=== PATIENT | male | born 1985 | race African-American/Black ===

== ENCOUNTER 2018-09-22 13:52 | Outpatient (CLI) | payer MEDICAID ==
[2018-09-22 14:15] VITALS: BP 117/69
[2018-09-22] MEDS ORDERED: ALBUTEROL SULF8.5 GM INH (16:43)
--- NOTE | 2018-09-22 23:30 | Consultation ---
DATE OF CONSULTATION: 09/22/2018 CHIEF COMPLAINT: The patient was referred to us for evaluation of constipation, bloating, abdominal pain. HISTORY OF PRESENT ILLNESS: The patient is a 33-year-old male who had a complaint of the above symptoms for many many years. He has been followed by GI. He had already had an endoscopy and colonoscopy in 2009 and followed by another one in 2011. He mainly complains of constipation. At one point, he said he has H. pylori bacterial infection. He was given treatment for that. He takes MiraLAX on and off, sometimes it works and sometimes it does not. No significant weight loss, actually he complained of weight gain. PAST MEDICAL HISTORY: 1. Asthma. 2. Bronchitis. 3. H. pylori gastritis. 4. Chronic constipation. PAST SURGICAL HISTORY: History of testicular torsion at age 14. MEDICATION: Albuterol. FAMILY HISTORY: No family history of GI malignancies. SOCIAL HISTORY: The patient drinks socially he says. Denies any tobacco or drug use. ALLERGIES: No known drug allergies. PHYSICAL EXAMINATION: VITAL SIGNS: Temperature 98, blood pressure 117/69, pulse 78, respirations 20. HEENT: Normocephalic and atraumatic. Sclerae anicteric. NECK: Supple. No evidence of obvious lymphadenopathy. CARDIOVASCULAR: Regular rate and rhythm. Plus S1 and S2. No obvious murmur. LUNGS: Clear to auscultation bilaterally. ABDOMEN: Positive bowel sounds. Soft and nontender. No rebound. No guarding. No peritoneal sign. EXTREMITIES: No cyanosis. No clubbing. No edema. ASSESSMENT: 1. Constipation. 2. Gas and bloating, possible small bowel intestinal bacterial overgrowth. PLAN: The patient was given MiraLax 17 g daily. Given prescriptions was Xifaxan. He wanted to have a breath test, we discussed he is going to have to get authorization for the breath test, he is going to try to that too. The patient come back after treatment. Buddy Connor M.D. DR: Olesya JOB#: [id number] CC:
== END 2018-09-22 15:24 | disposition home or self-care (01) ==
LOC: PAN 13:52
DX: K59.00 Constipation, unspecified (principal); R14.0 Abdominal distension (gaseous); R10.9 Unspecified abdominal pain; Z79.899 Other long term (current) drug therapy
CPT/HCPCS: 99202

== ENCOUNTER 2019-03-12 15:50 | Emergency (ER) | payer MEDICAID ==
[~2019-03-12] VITALS: Ht 172.7 cm; Wt 72.6 kg
[~2019-03-12 15:50] MED LIST: ALBUTEROL SULF8.5 GM INH
[2019-03-12 16:01] VITALS: BP 122/85
--- NOTE | 2019-03-12 16:52 | Emergency Room Report ---
History of Present Illness General Chief Complaint: General Complaint Source: Patient Present Illness HPI The patient presents requesting postexposure prophylaxis for possible HIV exposure. He has a new partner and this partner does not know his HIV status. No protection was used. His sexual encounter was a few hours prior to presenting to the emergency department. The patient denies prior HIV positivity. In triage she stated he had prior hepatitis B vaccination however when queried about this again he is uncertain. The patient suffers from irritable bowel syndrome. No fevers, chills, sore throat, chest pain, palpitations, nausea, vomiting, diarrhea, dysuria, abdominal pain, shortness of breath, joint pain, rashes, visual changes, dizziness, headache. Please see the history and physical performed by the PA. The patient threatened PA and she asked that I evaluate the patient. Allergies: Coded Allergies: No Known Allergies (Unverified , 09/22/18) Patient History Past Medical History: see triage record Social History: Reports: smoking, alcohol use, drug use Social History Narrative From [place] Reviewed Nursing Documentation: PMH: Agreed; PSxH: Agreed Nursing Documentation-PM Past Medical History: No History, Except For Hx Cardiac Problems: No Hx Asthma: No Hx Cancer: No Hx Gastrointestinal Problems: Yes Hx Neurological Problems: No Review of Systems All Other Systems: negative except mentioned in HPI Physical Exam Vital Signs Date Time Temp Pulse Resp B/P (MAP) Pulse Ox O2 Delivery O2 Flow Rate FiO2 03/12/19 15:55 99.1 90 18 119/80 (93) 95 Room Air Sp02 EP Interpretation: reviewed, normal General Appearance: well appearing, no apparent distress, GCS 15 Head: normocephalic, atraumatic Eyes: bilateral eye normal inspection, bilateral eye PERRL ENT: normal pharynx, moist mucus membranes Neck: full range of motion, supple Respiratory: normal inspection, lungs clear, normal breath sounds Cardiovascular #1: regular rate, rhythm Cardiovascular #2: 2+ radial (R) Gastrointestinal: normal inspection, scaphoid Genitourinary: no CVA tenderness Musculoskeletal: gait/station normal Neurologic: alert, grossly normal Psychiatric: anxious - Pressured Skin: normal color, no rash, warm/dry Medical Decision Making Diagnostic Impression: Primary Impression: Possible exposure to STD Additional Impression: Labile personality ER Course Patient presents with possible exposure to HIV. He is uncertain about the status of the source. He is request requesting postexposure prophylaxis. Laboratory is indicated. Patient complained that PA spoke with accent. Initially argumentative about lab work taking time. I told him the dosing would be dependent on his renal function. Lab work unremarkable. I told RN that he needed a dose of Truvada and raltegravir before going. He was upset that I stated this to RN in [facility] (I did not mention patient name or location). He felt this was not respecting his confidentiality. Patient initially refused to take medication under our observation. He wanted to take them with him and take them on his own. When he was advised that this was not permitted by state law he started arguing. He wanted me to show him the actual state law. I told him I did not have access to this. I told him it was his choice either to take the medication or to fill his prescription. He started yelling at me asking for some crackers. I told him I did not know if we had any - He yelled: "Well do you have crackers or not?" and almost hit me in the nose with his index finger. He stated he needed something in his stomach. I got him crackers and sandwich. He claimed I was treating him differently because he is black. Then calmed down. "I am used to a higher level of care - [facility]." Given meds. Patient stable for outpatient observation and treatment. Laboratory Tests Test 03/12/19 16:56 White Blood Count 4.2 K/UL (4.8-10.8) L Red Blood Count 5.59 M/UL (4.70-6.10) Hemoglobin 16.7 G/DL (14.2-18.0) Hematocrit 48.5 % (42.0-52.0) Mean Corpuscular Volume 87 FL (80-99) Mean Corpuscular Hemoglobin 29.9 PG (27.0-31.0) Mean Corpuscular Hemoglobin Concent 34.5 G/DL (32.0-36.0) Red Cell Distribution Width 11.0 % (11.6-14.8) L Platelet Count 243 K/UL (150-450) Mean Platelet Volume 6.3 FL (6.5-10.1) L Neutrophils (%) (Auto) 65.5 % (45.0-75.0) Lymphocytes (%) (Auto) 21.9 % (20.0-45.0) Monocytes (%) (Auto) 10.3 % (1.0-10.0) H Eosinophils (%) (Auto) 0.1 % (0.0-3.0) Basophils (%) (Auto) 2.2 % (0.0-2.0) H Sodium Level 139 MMOL/L (136-145) Potassium Level 3.9 MMOL/L (3.5-5.1) Chloride Level 102 MMOL/L (98-107) Carbon Dioxide Level 36 MMOL/L (21-32) H Anion Gap 1 mmol/L (5-15) L Blood Urea Nitrogen 14 mg/dL (7-18) Creatinine 1.1 MG/DL (0.55-1.30) Estimate Glomerular Filtration Rate > 60 mL/min (>60) Glucose Level 88 MG/DL (74-106) Calcium Level 9.5 MG/DL (8.5-10.1) Total Bilirubin 0.5 MG/DL (0.2-1.0) Aspartate Amino Transferase (AST) 29 U/L (15-37) Alanine Aminotransferase (ALT) 34 U/L (12-78) Alkaline Phosphatase 117 U/L (46-116) H Total Protein 8.1 G/DL (6.4-8.2) Albumin 4.4 G/DL (3.4-5.0) Globulin 3.7 g/dL Albumin/Globulin Ratio 1.2 (1.0-2.7) Amylase Level 82 U/L (25-115) Lipase 140 U/L (73-393) Urine Opiates Screen Negative (NEGATIVE) Urine Barbiturates Screen Negative (NEGATIVE) Phencyclidine (PCP) Screen Negative (NEGATIVE) Urine Amphetamines Screen Negative (NEGATIVE) Urine Benzodiazepines Screen Negative (NEGATIVE) Urine Cocaine Screen Negative (NEGATIVE) Urine Marijuana (THC) Screen Negative (NEGATIVE) Hepatitis B Surface Antibody, Quant Pending Hepatitis C Antibody Pending HIV (1&2) Antibody Rapid Negative (NEGATIVE) Last Vital Signs Date Time Temp Pulse Resp B/P (MAP) Pulse Ox O2 Delivery O2 Flow Rate FiO2 03/12/19 18:24 98.8 86 18 130/85 97 Room Air Status: unchanged Disposition: HOME, SELF-CARE Condition: Stable Scripts Raltegravir (Isentress) 400 Mg Tablet 400 MG ORAL EVERY 12 HOURS, #6 TAB Prov: Curtis Madrigal MD 03/12/19 Emtricitabine/Tenofovir 200-300MG* (TRUVADA 200-300MG*) 1 Each Tablet 1 TAB ORAL DAILY, #3 TAB Prov: Curtis Madrigal MD 03/12/19 Curtis Madrigal MD Mar 12, 2019 16:52
--- NOTE | 2019-03-12 16:54 | Emergency Room Report ---
Physical Exam Vital Signs Date Time Temp Pulse Resp B/P (MAP) Pulse Ox O2 Delivery O2 Flow Rate FiO2 03/12/19 15:55 99.1 90 18 119/80 (93) 95 Room Air Medical Decision Making Diagnostic Impression: Primary Impression: Possible exposure to STD ER Course This is a 33-year-old male with no known significant past medical history here requesting to be treated with Prep as he does not know his HIV status of his partner. Patient does not want to answer any questions regarding all other past sexually transmitted diseases that he might have as well as knowing the known status since he says that he googled that he needs to go to get prep right away and even knowing that his partner is not positive for HIV. As I am explaining to him and how he needs to be tested and then started on medication as well as being treated positive for other sexually transmitted diseases such as syphilis, Chlamydia, gonorrhea he starts being very rude and saying that 1 I am not a doctor and I do not know what I am doing and he likes to talk to a doctor. He then starts being very rude to my nurse. I reported this to Dr. Madrigal, and he is well aware of the behavior that the patient conducted. Patient is no longer under my care at this time. The course of the treatment would remain the same regardless of history of behavior, I would have tested him for rapid HIV, as well as his liver function in order to start him on Truvada and Raltegavir as well as offering medication for possible exposure to chlamydia, gonorrhea, and syphilis. Patient continued to be removed and was not advised not to speak to the hospital staff were trying to help him in a routine manner. He also told me specifically that he was going to nuvia me for even asking him whether he was exposed to sexually transmitted diseases or not Last Vital Signs Date Time Temp Pulse Resp B/P (MAP) Pulse Ox O2 Delivery O2 Flow Rate FiO2 03/12/19 16:01 92 18 Room Air 03/12/19 16:01 99.1 122/85 97 Alicia Bhatt Mar 12, 2019 16:54
[2019-03-12] MEDS ORDERED: TRUVADA 200 MG1 EAC1 ORAL (16:58)
[2019-03-12] MEDS ORDERED: ISENTRESS400 MG ORAL (16:58)
[2019-03-12 17:19] LABS: BASOPHILS % (AUTO) 2.2 % (0.0-2.0); EOSINOPHILS % (AUTO) 0.1 % (0.0-3.0); HEMATOCRIT 48.5 % (42.0-52.0); HEMOGLOBIN 16.7 G/DL (14.2-18.0); LYMPHOCYTES % (AUTO) 21.9 % (20.0-45.0); MEAN CORPUSCULAR VOLUME 87 FL (80-99); MONOCYTES % (AUTO) 10.3 % (1.0-10.0); NEUTROPHILS % (AUTO) 65.5 % (45.0-75.0); PLATELET COUNT 243 K/UL (150-450); RED BLOOD COUNT 5.59 M/UL (4.70-6.10); WHITE BLOOD COUNT 4.2 K/UL (4.8-10.8)
[2019-03-12 17:38] LABS: ANION GAP 1 mmol/L (5-15); BLOOD UREA NITROGEN 14 mg/dL (7-18); CALCIUM 9.5 MG/DL (8.5-10.1); CARBON DIOXIDE 36 MMOL/L (21-32); CHLORIDE 102 MMOL/L (98-107); CREATININE 1.1 MG/DL (0.55-1.30); POTASSIUM 3.9 MMOL/L (3.5-5.1); SODIUM 139 MMOL/L (136-145)
[2019-03-12 17:43] LABS: ALANINE AMINOTRANSFERASE 34 U/L (12-78); ALBUMIN 4.4 G/DL (3.4-5.0); ALBUMIN/GLOBULIN RATIO 1.2 (1.0-2.7); ALKALINE PHOSPHATASE 117 U/L (46-116); AMYLASE 82 U/L (25-115); ASPARTATE AMINO TRANSFERASE 29 U/L (15-37); BILIRUBIN,TOTAL 0.5 MG/DL (0.2-1.0)
[2019-03-12] MEDS ORDERED: Isentress 400mg tab ORAL STA (18:08)
[2019-03-12 18:24] VITALS: BP 130/85
== END 2019-03-12 18:24 | disposition home or self-care (01) ==
LOC: EMR 16:26
DX: Z20.2 Contact with and (suspected) exposure to infections with a predominantly sexual mode of transmission (principal); Z86.19 Personal history of other infectious and parasitic diseases; F17.200 Nicotine dependence, unspecified, uncomplicated
CPT/HCPCS: 36415; 80053; 80307; 82150; 83690; 85025; 86703; 86803; 87517; 99283